=== PATIENT | male | born 1980 | race Two or more races ===

== ENCOUNTER 2018-08-01 13:57 | Emergency (ER) | payer OTHER ==
[2018-08-01 14:12] VITALS: BP 156/92
--- NOTE | 2018-08-01 14:24 | EDPHY ---
H & P Time Seen by Provider: 08/01/18 14:07 HPI/ROS: CHIEF COMPLAINT: Umbilical pain History by patient HISTORY OF PRESENT ILLNESS: 29-year-old man presents complaining of severe onset of pain and his umbilicus where there is a hard lump. Patient states that he has had a soft lump there for many months but it has never been painful before. He noticed it somewhat painful and hard this morning in the shower. He was able to eat without difficulty. He had a normal bowel movement this morning. Neither of these things affected the pain. He has had no nausea or vomiting or fever. He saw his primary care physician who referred him to the emergency department. He has no prior abdominal surgeries. He has not taken anything for the pain. REVIEW OF SYSTEMS: As in HPI, and all other systems reviewed and are negative Smoking Status: Never smoked Physical Exam: General Appearance: Alert, obese, nontoxic-appearing. Eyes: Pupils equal and round, extraocular movements intact, no pallor or injection. Mouth: Mucous membranes moist. Pharynx clear Respiratory: Normal, effort, lungs are clear to auscultation. No wheezes, rales or rhonchi. Cardiovascular: Regular rate and rhythm. S1, S2, no murmurs, gallops or rubs appreciated Gastrointestinal: bowel sounds present, Abdomen is soft and nondistended, mildly tender small umbilical hernia Back: No CVA tenderness, no bony tenderness Neurological: Awake, alert and oriented x 3, no pronator drift, normal gait, no pronator drift Skin: Warm and dry, no rashes. Musculoskeletal: No deformities or tenderness. Extremities: full range of motion, no edema Psychiatric: Patient has normal affect, there is no agitation. Constitutional: Initial Vital Signs Heart Rate 77 08/01/18 14:10 Respiratory Rate 16 08/01/18 14:10 Blood Pressure 156/92 H 08/01/18 14:10 O2 Sat (%) 94 08/01/18 14:10 O2 Delivery Mode Room Air O2 (L/minute) 36.9 Allergies/Adverse Reactions: No Known Allergies Allergy (Verified 08/01/18 14:09) Home Medications: Medication Instructions Recorded NO HOME MEDICATIONS 06/15/11 MDM/Departure - [facility] ED Course/Re-evaluation: 29-year-old man presents with painful umbilical hernia. There is no evidence of systemic toxicity or incarceration. I was able to reduce the hernia in the emergency department without difficulty or need for sedation and the patient's symptoms resolved with reduction. We discussed the diagnosis and the patient is referred for outpatient evaluation for surgical repair. - Depart Disposition: Home, Routine, Self-Care Clinical Impression: Umbilical hernia without obstruction and without gangrene Condition: Good Instructions: Umbilical Hernia (ED) Additional Instructions: You were seen by Dr. Zaina Corona today. You have an umbilical hernia. We were able to reduce this today but it will need surgical repair. Please call Dr. Gong to schedule evaluation for surgery. Return for any worsening or new concerns, including but not limited to increased pain, inability to for the hernia to go back in, vomiting or inability to eat.. Referrals: Derick Alfred, DO [Primary Care Provider] - As per Instructions
== END 2018-08-01 14:40 | disposition home or self-care (01) ==
LOC: CED 13:57
DX: K42.9 Umbilical hernia without obstruction or gangrene (principal)
CPT/HCPCS: 99282-ER